=== PATIENT | female | born 1995 | race Caucasian/White ===

== ENCOUNTER 2022-05-14 23:18 | Emergency (ER) | payer OTHER ==
[~2022-05-14] VITALS: Ht 165.1 cm; Wt 90.7 kg
[2022-05-14 23:34] VITALS: BP 118/70
[2022-05-14] MEDS ORDERED: AMOX-430 PO (23:41)
[2022-05-14] MEDS ORDERED: ACETAMINOPHEN ES 500 MG TABLET ONE (23:43)
[2022-05-14] MEDS ORDERED: AMOX/CLAVULANATE 875 MG TABLET ONE (23:43)
[2022-05-15] MEDS ORDERED: ACETAMINOPHEN 325 MG TABLET PO ONE
[2022-05-15] MEDS ORDERED: AMOX/CLAVULANATE 875 MG TABLET PO ONE
== END 2022-05-14 23:50 | disposition home or self-care (01) ==
LOC: ER 23:25
DX: J02.0 Streptococcal pharyngitis (principal); R50.9 Fever, unspecified; Z79.899 Other long term (current) drug therapy

== ENCOUNTER 2022-05-22 04:50 | Emergency (ER) | payer OTHER ==
[~2022-05-22] VITALS: Ht 165.1 cm; Wt 90.7 kg
[~2022-05-22 04:50] MED LIST: AMOX-430 PO
[2022-05-22 04:59] VITALS: BP 123/70
--- NOTE | 2022-05-22 04:59 | NUR ---
BIBS FOR VIGINAL "RASHES/ BLISTERS" X 3 DAYS. PT A/OX4. TOLERATING R/A WELL WITH NO SOB. SAFETY MEASURES IN PLACE.
--- NOTE | 2022-05-22 05:12 | NUR ---
URINE COLLECTED AND SENT TO LAB
[2022-05-22] MEDS ORDERED: VALA100026 PO (05:28)
--- NOTE | 2022-05-22 05:35 | NUR ---
Patient discharged to home in stable condition. Written and verbal after care instructions given. Patient verbalizes understanding of instruction. PT ambulatory with a steady gait
== END 2022-05-22 04:59 | disposition home or self-care (01) ==
LOC: ER 04:51
DX: N76.0 Acute vaginitis (principal); R10.2 Pelvic and perineal pain; Z79.899 Other long term (current) drug therapy